=== PATIENT | female | born 1940 | race Caucasian/White ===

== ENCOUNTER 2017-01-24 17:53 | Inpatient (IN) | payer MEDICARE ==
[~2017-01-24] VITALS: Ht 170.2 cm; Wt 54.3 kg
[2017-01-24] VITALS (8 sets, daily range): BP systolic 135–239; BP diastolic 71–125; PULSE 65–82; RESP 12–22; TEMP 98–99.1; O2SAT 92–99
[2017-01-24] MEDS ORDERED: SODIUM CHLOR 0.9% 1000 ML INJ 1,000 ML IV ONE (17:59)
[2017-01-24] MEDS ORDERED: PROM25TA10 PO (18:00)
[2017-01-24] MEDS ORDERED: CLON0.1T PO (18:00)
[2017-01-24] MEDS ORDERED: LORA1TAB12 PO (18:00)
[2017-01-24] MEDS ORDERED: HYDR-3288 PO (18:00)
[2017-01-24] MEDS ORDERED: MS C15TA2 PO (18:00)
[2017-01-24] MEDS ORDERED: GABA300C5 PO (18:00)
[2017-01-24] MEDS ORDERED: LOMO2.5T PO (18:00)
[2017-01-24] MEDS ORDERED: SACC1CAP3 PO (18:00)
[2017-01-24] MEDS ORDERED: ASPI81CH CHEW (18:00)
--- NOTE | 2017-01-24 18:18 | RADRPT ---
EXAM DATE/TIME: 01/24/2017 18:05 [facility] COMPARISON: No previous studies available for comparison. INDICATIONS : Stroke alert; Right facial droop. RADIATION DOSE: 29.82 CTDIvol (mGy) This report was called by Dr. Martinez to Dr. Gasca at 1815 MEDICAL HISTORY : Non-responsive. SURGICAL HISTORY : Non-responsive. ENCOUNTER: Initial ACUITY: 1 day PAIN SCALE: Non-responsive LOCATION: cranial TECHNIQUE: Multiple contiguous axial images were obtained of the head. Using automated exposure control and adj ustment of the mA and/or kV according to patient size, radiation dose was kept as low as reasonably a chievable to obtain optimal diagnostic quality images. DICOM format image data is available electro nically for review and comparison. FINDINGS: CEREBRUM: Focal hypodensity in the left frontal white matter indicating chronic small vessel ischemic change. T he ventricles are normal for age. No evidence of midline shift, mass lesion, hemorrhage or acute inf arction. No extra-axial fluid collections are seen. POSTERIOR FOSSA: The cerebellum and brainstem are intact. The 4th ventricle is midline. The cerebellopontine angle i s unremarkable. EXTRACRANIAL: The visualized portion of the orbits is intact. SKULL: The calvaria is intact. No evidence of skull fracture. CONCLUSION: No acute intracranial findings. Manoj Martinez MD on January 24, 2017 at 18:13 Board Certified Radiologist. This report was verified electronically.
[2017-01-24] MEDS ORDERED: IOHEXOL 350 MG/ML 10 ML VIAL (for RAD DIAG) IVCONTRAST ONE (18:23)
[2017-01-24 18:29] LABS: AUTOMATED NEUTROPHIL # 5.4 TH/MM3 (1.8-7.7); BASOPHIL % 0.3 % (0.0-2.0); EOSINOPHIL # 0.2 TH/MM3 (0-0.4); EOSINOPHIL % 2.6 % (0.0-4.0); HEMATOCRIT 34.9 % (35.0-46.0); HEMO FLAGS DIFF FINAL; I-STAT POTASSIUM 3.7 MMOL/L (3.5-4.9); I-STAT SODIUM 135 MMOL/L (138-146); LYMPH % 11.9 % (9.0-44.0); LYMPHOCYTE # 0.8 TH/MM3 (1.0-4.8); MEAN CELL VOLUME 95.6 FL (80.0-100.0); MEAN CORPUSCULAR HEMOGLOBIN 31.1 PG (27.0-34.0); MEAN CORPUSCULAR HGB CONC 32.5 % (32.0-36.0); NEUT % 75.2 % (16.0-70.0); PLATELET COUNT 198 TH/MM3 (150-450); RED BLOOD COUNT 3.65 MIL/MM3 (4.00-5.30); RED CELL DISTRIBUTION WIDTH 14.7 % (11.6-17.2); WHITE BLOOD COUNT 7.1 TH/MM3 (4.0-11.0)
[2017-01-24] MEDS ORDERED: SODIUM CHLORIDE 0.9% 50 ML BAG IVF ONE (18:30)
[2017-01-24] MEDS ORDERED: ALTEPLASE BOLUS 9 MG/9 ML SYR IV ONE (18:30)
[2017-01-24] MEDS ORDERED: MISCELLANEOUS NURSING INFORMATION XX PRN (18:30)
[2017-01-24] MEDS ORDERED: ALTEPLASE DRIP IV ONE (18:30)
[2017-01-24 18:46] LABS: CREATINE KINASE 82 U/L (26-192)
--- NOTE | 2017-01-24 18:47 | PD ---
HPI Chief Complaint: Stroke Alert Time Seen by Provider: 17:59 Travel History International Travel<30 days: No Contact w/Intl Traveler<30days: No Traveled to known affect area: No History of Present Illness HPI Patient is a woman in her 70s, brought in by EMS as a stroke alert. Per EMS patient was last seen normal about an hour ago. She went to the bathroom and when she came back her son noticed that she had facial droop and she is unable to speak with him. Patient is unable to provide history at this time. [facility] Past Medical History Medical History: Unable to Obtain Tetanus Vaccination: Unknown Past Surgical History Surgical History: Unable to Obtain Social History Alcohol Use: No Tobacco Use: No Substance Use: No Allergies-Medications (Allergen,Severity, Reaction): Coded Allergies: fentanyl (Verified Allergy, Unknown, 01/24/17) penicillin V (Verified Allergy, Unknown, 01/24/17) Reported Meds & Prescriptions Reported Meds & Active Scripts Active Reported Probiotic (Saccharomyces Boulardii) 250 Mg Cap 250 Mg PO BID Aspirin 81 Mg Chew 81 Mg CHEW DAILY Lomotil (Diphenoxylate-Atropine) 2.5-0.025 Mg Tab 1 Tab PO Q6H PRN Phenergan (Promethazine HCl) 25 Mg Tablet 25 Mg PO Q6H PRN Lorazepam 1 Mg Tab 1 Mg PO DAILY PRN Clonidine (Clonidine HCl) 0.1 Mg Tab 0.1 Mg PO TID Gabapentin 300 Mg Cap 300 Mg PO TID [place] (Hydrocodone-Acetaminophen) 7.5-325 mg Tab 1 Tab PO Q4H PRN Ms Contin (Morphine Sulfate) 15 Mg Tab 60 Mg PO BID Review of Systems ROS Limitations: Altered Mental Status Physical Exam Narrative GENERAL: He can alert, but not following directions. In no acute distress. SKIN: Focused skin assessment warm/dry. HEAD: Atraumatic. Normocephalic. EYES: Pupils equal and round and reactive. No scleral icterus. Extraocular movements intact. ENT: Mucous membranes pink and moist. NECK: Trachea midline. No JVD. CARDIOVASCULAR: Regular rate and rhythm. No murmur appreciated. RESPIRATORY: No accessory muscle use. Clear to auscultation. Breath sounds equal bilaterally. GASTROINTESTINAL: Abdomen soft, non-tender, nondistended. MUSCULOSKELETAL: No obvious deformities. No clubbing. No cyanosis. No edema. NEUROLOGICAL: Awake and alert. He used speech. Obvious right-sided facial droop. Moves all of her extremities, but able to follow directions. Data Data Last Documented VS Vital Signs Date Time Temp Pulse Resp B/P (MAP) Pulse Ox O2 Delivery O2 Flow Rate FiO2 01/24/17 19:00 65 14 135/74 (94) 98 Nasal Cannula 2.00 01/24/17 18:38 98.2 Orders Orders Diet Npo (01/24/17 Dinner) Activity Bed Rest (01/24/17 ) Electrocardiogram (01/24/17 ) I-Stat Creatinine (01/24/17 17:59) I-Stat Profile (01/24/17 17:59) Prothrombin Time / Inr (Pt) (01/24/17 17:59) Act Partial Throm Time (Ptt) (01/24/17 17:59) Complete Blood Count With Diff (01/24/17 17:59) Fibrinogen (01/24/17 17:59) Creatine Kinase (Cpk) (01/24/17 17:59) Troponin I (01/24/17 17:59) Ua Includes Microscopic (01/24/17 17:59) Drug Screen, Random Urine (01/24/17 17:59) Type And Screen (01/24/17 17:59) Ct Brain W/O Iv Contrast(Rout) (01/24/17 ) Chest, Single Ap (01/24/17 ) Consult Neurology (01/24/17 ) Blood Glucose (01/24/17 17:59) Ecg Monitoring (01/24/17 17:59) Neuro Checks Q2HX12,Q4H (01/24/17 17:59) Nursing Bedside Swallow Assess .ONCE (01/24/17 17:59) Iv Access Insert/Monitor (01/24/17 17:59) NPO (01/24/17 17:59) Oximetry (01/24/17 17:59) Oxygen Administration (01/24/17 17:59) Sodium Chlor 0.9% 1000 Ml Inj (Ns 1000 M (01/24/17 17:59) Resp Oxygen Marek C Titrat 1-4 L (01/24/17 17:59) Cath For Specimen (01/24/17 17:59) (Hub Use Only)Inp Phy Cons/Ref (9/9/17 ) Cta Brain W Iv Contrast W 3d (01/24/17 ) Cta Neck W Iv Contrast W 3d (01/24/17 18:16) ^ Call Pharmacy (01/24/17 18:19) Nih Stroke Scale - Nihss .ONCE (01/24/17 18:19) Urinary Catheter Insert/Apply (01/24/17 18:19) Anticoagulant Alert (01/24/17 18:19) ^ Post Infusion Restrictions (01/24/17 18:19) ^ Medication Alert (01/24/17 18:19) Vital Signs (Adult) .As directed (01/24/17 18:19) Notify Dr: Blood Pressure (01/24/17 18:19) ^ Medication Alert (01/24/17 18:19) Alteplase Bolus (Activase Bolus) (01/24/17 18:30) Alteplase Drip (Activase Drip) (01/24/17 18:30) Sodium Chloride 0.9% Inj (Ns Inj) (01/24/17 18:30) [facility] Nursing Information (01/24/17 18:30) Resp Oxygen Marek C Titrat 1-4 L (01/24/17 ) Iohexol 350 Inj (Omnipaque 350 Inj) (01/24/17 18:23) Mri Brain W/O Contrast (01/24/17 ) Consult Pt Eval & Tx Oob (01/24/17 19:19) Ot Request For Service (01/24/17 19:19) Speech Therapy Consult-Eval/Tx (01/24/17 19:19) Scd&Teds Bilateral/Knee High BRET.QSHIFT (01/24/17 19:19) W[place]gren Sedimentation Rate (01/24/17 19:19) Vitamin B12 (01/24/17 19:19) Thyroid Stimulating Hormone (01/24/17 19:19) Lipid Profile (01/24/17 19:19) Hemoglobin (Hgb) A1c (01/24/17 19:19) C-Reactive Protein (Crp) (01/24/17 19:19) Eeg Study (01/24/17 ) Echo 2d Comp With Doppler (01/24/17 ) Sodium Chlor 0.9% 1000 Ml Inj (Ns 1000 M (01/24/17 19:30) Labs Laboratory Tests Test 01/24/17 17:55 01/24/17 18:40 White Blood Count 7.1 TH/MM3 Red Blood Count 3.65 MIL/MM3 Hemoglobin 11.4 GM/DL Bedside Hemoglobin 12.2 G/DL Hematocrit 34.9 % Bedside Hematocrit 36.0 % Mean Corpuscular Volume 95.6 FL Mean Corpuscular Hemoglobin 31.1 PG Mean Corpuscular Hemoglobin Concent 32.5 % Red Cell Distribution Width 14.7 % Platelet Count 198 TH/MM3 Mean Platelet Volume 7.7 FL Neutrophils (%) (Auto) 75.2 % Lymphocytes (%) (Auto) 11.9 % Monocytes (%) (Auto) 10.0 % Eosinophils (%) (Auto) 2.6 % Basophils (%) (Auto) 0.3 % Neutrophils # (Auto) 5.4 TH/MM3 Lymphocytes # (Auto) 0.8 TH/MM3 Monocytes # (Auto) 0.7 TH/MM3 Eosinophils # (Auto) 0.2 TH/MM3 Basophils # (Auto) 0.0 TH/MM3 CBC Comment DIFF FINAL Differential Comment Prothrombin Time 10.8 SEC Prothromb Time International Ratio 1.0 RATIO Activated Partial Thromboplast Time 27.2 SEC Fibrinogen 208 mg/dL Bedside Sodium 135 MMOL/L Bedside Potassium 3.7 MMOL/L Bedside Chloride 96 MMOL/L Bedside Blood Urea Nitrogen 7 MG/DL Bedside Creatinine 0.9 MG/DL Bedside Glucose 99 MG/DL Total Creatine Kinase 82 U/L Troponin I LESS THAN 0.02 NG/ML MDM Medical Decision Making Medical Screen Exam Complete: Yes Emergency Medical Condition: Yes Interpretation(s) ECG shows normal sinus rhythm at 68, no ST elevation or depression, normal intervals. Differential Diagnosis Stroke versus sepsis versus intoxication versus electrolyte abnormality Narrative Course patient is a female in her 70s comes in as a stroke alert. She is unable to provide history. She is clearly aphasic and has right-sided facial droop. We' ll, IV established, patient connected to the monitor and taken to CT. There is no evidence of bleed on CT. I spoke with Dr. Galvez urology who suggests giving TPA. TPA was initiated. Patient did start to have some improvement of her symptoms and was speaking more clearly. She still not following any directions. Labs show no acute abnormalities. X-ray shows no acute abnormalities. Patient will be admitted for further management. Diagnosis Primary Impression: Stroke Qualified Codes: I63.9 - Cerebral infarction, unspecified Admitting Information Admitting Physician Requests: it Alethea Gasca MD Jan 24, 2017 18:47
[2017-01-24 18:52] LABS: APTT (PATIENT) 27.2 SEC (24.3-30.1); PROTHROMBIN TIME - PATIENT 10.8 SEC (9.8-11.6)
--- NOTE | 2017-01-24 18:58 | RADRPT ---
EXAM DATE/TIME: 01/24/2017 18:15 [facility] COMPARISON: No previous studies available for comparison. INDICATIONS : Stroke alert, altered mental status. IV CONTRAST: 100 cc Omnipaque 350 (iohexol) IV ; Cumulative dose for multiple exams. RADIATION DOSE: 25.37 CTDIvol (mGy) ; Combined studies MEDICAL HISTORY : Non-responsive. SURGICAL HISTORY : Non-responsive. ENCOUNTER: Initial ACUITY: 1 day PAIN SCALE: Non-responsive LOCATION: Bilateral head TECHNIQUE: Volumetric scanning was performed using a multi-row detector CT scanner. The data was post processed with a variety of visualization algorithms including full volume maximum intensity projection, multi -planar sliding thin slab reformation, curved planar reformation, and surface rendering techniques. Using automated exposure control and adjustment of the mA and/or kV according to patient size, radiat ion dose was kept as low as reasonably achievable to obtain optimal diagnostic quality images. DICO M format image data is available electronically for review and comparison. FINDINGS: There is excellent visualization of the major intracranial arteries out to the second-order branch ve ssels. The left internal carotid artery is completely occluded. The left supraclinoid intracranial carotid r econstitutes via collateral flow from the picayune of Robert. The left cervical circulation demonstrate s decreased caliber of the proximal vessels but is otherwise patent. There were no intraluminal filli ng defects. Vertebrobasilar circulation is intact without evidence of occlusive or stenotic disease. The right ve rtebral artery is dominant. CONCLUSION: 1. Left internal carotid artery occlusion which may be chronic. 2. Reconstituted intracranial left internal carotid artery without evidence of proximal cerebral sten otic or occlusive disease. 3. Patent right cerebral circulation and vertebral basilar circulation. report called to ED physician at 1855. Percy Silva MD on January 24, 2017 at 18:49 Board Certified Radiologist. This report was verified electronically.
--- NOTE | 2017-01-24 19:02 | RADRPT ---
EXAM DATE/TIME: 01/24/2017 18:15 [facility] COMPARISON: No previous studies available for comparison. INDICATIONS : Stroke alert, altered mental status. IV CONTRAST: 100 cc Omnipaque 350 (iohexol) IV ; Cumulative dose for multiple exams. RADIATION DOSE: 25.37 CTDIvol (mGy) ; Combined studies MEDICAL HISTORY : Non-responsive. SURGICAL HISTORY : Non-responsive. ENCOUNTER: Initial ACUITY: 1 day PAIN SCALE: Non-responsive LOCATION: Bilateral neck Elevated flow velocities and ICA/CCA ratios have been found to correlate with increased degrees of vessel stenosis, calculated as percentage of diameter relative to a normal segment of distal ICA/CCA. TECHNIQUE: Volumetric scanning was performed using a multirow detector CT scanner. The data was post processed with a variety of visualization algorithms including full-volume maximum intensity projection, multip lanar sliding thin-slab reformation, curved-planar reformation, and surface-rendering techniques. Us ing automated exposure control and adjustment of the mA and/or kV according to patient size, radiatio n dose was kept as low as reasonably achievable to obtain optimal diagnostic quality images. DICOM f ormat image data is available electronically for review and comparison. FINDINGS: AORTIC ARCH: There is a three-vessel origin of the great vessels from the aorta. Calcified plaque is identified in the proximal great vessels. No evidence of ostial narrowing. RIGHT CAROTID: Mild eccentric plaque is identified in the carotid bifurcation. The common and internal carotid arter ies are otherwise widely patent. LEFT CAROTID: The distal left common carotid artery is heavily calcified. The internal carotid artery is completely occluded. VERTEBRALS: Vertebral arteries are asymmetric in diameter. The right vertebral artery is dominant. There were no proximal stenotic or occlusive changes. CONCLUSION: 1. Heavily calcified left carotid system with suspected chronic occlusion of the left internal caroti d artery. 2. Widely patent right carotid system. 3. Asymmetric vertebral arteries with a dominant right vertebral artery. 4. Postsurgical changes left neck following neck dissection. Percy Silva MD on January 24, 2017 at 18:57 Board Certified Radiologist. This report was verified electronically.
--- NOTE | 2017-01-24 19:13 | RADRPT ---
EXAM DATE/TIME: 01/24/2017 18:24 [facility] COMPARISON: No previous studies available for comparison. INDICATIONS : Stroke Alert. MEDICAL HISTORY : Unresponsive. SURGICAL HISTORY : Unresponsive. ENCOUNTER: Initial ACUITY: 1 day PAIN SCORE: Non-responsive. LOCATION: Bilateral chest FINDINGS: Diffuse bilateral interstitial disease is identified. Interstitial markings are prominent. Heart is m ildly enlarged. There is no evidence of significant consolidation. Post surgical changes are seen in the left side of the neck. CONCLUSION: Diffuse interstitial lung disease which may represent mild congestion versus pneumonitis. No cardiomegaly. Percy Silva MD on January 24, 2017 at 19:10 Board Certified Radiologist. This report was verified electronically.
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
[2017-01-24 19:25] LABS: BLOOD, URINE NEG (NEG); GLUCOSE,URINE NEG (NEG); KETONE, URINE NEG (NEG); NITRITE,URINE NEG (NEG); PH, URINE 6.5 (5.0-8.5); SQUAMOUS EPITHELIAL CELL URINE <1 /hpf (0-5); URINE COLOR LIGHT-YELLOW (YELLW/STRAW)
[2017-01-24] MEDS ORDERED: SODIUM CHLOR 0.9% 1000 ML INJ 1,000 ML IV SCH (19:30)
[2017-01-24] MEDS ORDERED: BISACODYL 10 MG SUPP RECTAL PRN (20:30)
[2017-01-24] MEDS ORDERED: CHLORHEXIDINE GLUCONATE 2 % 1 PACK (2 CLOTHS) TOP PRN (20:30)
[2017-01-24] MEDS ORDERED: MAGNESIUM HYDROXIDE SUSP 30 ML CUP PO PRN (20:30)
[2017-01-24] MEDS ORDERED: MISCELLANEOUS NURSING INFORMATION XX SCH (20:30)
[2017-01-24] MEDS ORDERED: LORazepam 1 MG TAB PO PRN (20:30)
[2017-01-24] MEDS ORDERED: ACETAMINOPHEN 325 MG TAB PO PRN (20:30)
[2017-01-24] MEDS ORDERED: DIPHENOXYLATE/ATROPINE 2.5 MG/0.025 MG TAB PO PRN (20:30)
[2017-01-24] MEDS ORDERED: PROMETHAZINE HCL 25 MG TAB PO PRN (20:30)
[2017-01-24] MEDS ORDERED: SENNOSIDES 8.6 MG TAB PO PRN (20:30)
[2017-01-24] MEDS ORDERED: ONDANSETRON HCL 4 MG/2 ML VIAL IV PUSH PRN (20:30)
[2017-01-24] MEDS ORDERED: LACTULOSE SYRUP 20 GM/30 ML CUP PO PRN (20:30)
[2017-01-24] MEDS ORDERED: RESP: ALBUTEROL 2.5 MG/IPRATROPIUM 0.5 MG NEB (PRN) INH (20:30)
[2017-01-24] MEDS ORDERED: SODIUM CHLORIDE 0.9% FLUSH 10 ML FLUSH PRN (20:30)
[2017-01-24] MEDS ORDERED: NON-FORMULARY DRUG (Saccharomyces Boulardii (Probiotic) 250 MG) PO SCH (21:00)
[2017-01-24] MEDS ORDERED: MORPHINE SULFATE 15 MG CONTROLLED RELEASE TAB PO SCH (21:00)
[2017-01-24] MEDS: DOCUSATE SODIUM 50 MG/SENNA 8.6 MG TAB PO SCH (21:00)
[2017-01-24] MEDS: SODIUM CHLORIDE 0.9% FLUSH 10 ML FLUSH SCH (21:00)
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
[2017-01-24] MEDS: SODIUM CHLOR 0.9% 1000 ML INJ 1,000 ML IV SCH ×2 (21:15→23:09)
[2017-01-24 21:30] LABS: HDL CHOLESTEROL 81.6 MG/DL (40.0-60.0); LDL CHOLESTEROL 64 MG/DL (0-99)
[2017-01-24] MEDS ORDERED: niCARdipine INJ 25 MG in SODIUM CHLOR 0.9% 250 ML INJ 250 ML IV PRN (22:30)
[2017-01-24] MEDS ORDERED: LABETALOL HCL 100 MG/20 ML VIAL IV PUSH PRN (22:30)
[2017-01-24] MEDS: FAMOTIDINE 20 MG/2 ML VIAL IV PUSH SCH (22:53)
[2017-01-24] MEDS: hydrALAZINE HCL 20 MG/ML VIAL IV PUSH PRN (22:53)
[2017-01-24] MEDS ORDERED: MAGNESIUM SULFATE 1 GM PREMIX 100 ML IV ONE (23:45)
[2017-01-24] MEDS: LORazepam 2 MG/ML VIAL IV PUSH PRN (23:50)
[2017-01-24] MEDS: MORPHINE SULFATE 4 MG/ML INJ IV PUSH PRN (23:50)
[2017-01-25] VITALS (12 sets, daily range): BP systolic 107–193; BP diastolic 53–86; PULSE 66–101; RESP 13–25; TEMP 97.8–99.5; O2SAT 92–100
[2017-01-25] MEDS: CHLORHEXIDINE GLUCONATE 2 % 1 PACK (2 CLOTHS) TOP SCH ×2 (00:31→20:46)
[2017-01-25 05:38] LABS: AUTOMATED NEUTROPHIL # 6.2 TH/MM3 (1.8-7.7); BASOPHIL % 0.2 % (0.0-2.0); EOSINOPHIL # 0.3 TH/MM3 (0-0.4); EOSINOPHIL % 3.2 % (0.0-4.0); HEMATOCRIT 38.9 % (35.0-46.0); HEMO FLAGS DIFF FINAL; LYMPH % 13.7 % (9.0-44.0); LYMPHOCYTE # 1.2 TH/MM3 (1.0-4.8); MEAN CELL VOLUME 95.1 FL (80.0-100.0); MEAN CORPUSCULAR HEMOGLOBIN 30.8 PG (27.0-34.0); MEAN CORPUSCULAR HGB CONC 32.4 % (32.0-36.0); MONO % 10.3 % (0.0-8.0); NEUT % 72.6 % (16.0-70.0); PLATELET COUNT 213 TH/MM3 (150-450); RED BLOOD COUNT 4.08 MIL/MM3 (4.00-5.30); RED CELL DISTRIBUTION WIDTH 14.9 % (11.6-17.2); WHITE BLOOD COUNT 8.6 TH/MM3 (4.0-11.0)
[2017-01-25 06:02] LABS: ALKALINE PHOSPHATASE 71 U/L (45-117); TOTAL BILIRUBIN ADULT 0.4 MG/DL (0.2-1.0)
[2017-01-25 06:03] LABS: ALT (GPT) 21 U/L (10-53); ANION GAP 6 MEQ/L (5-15); AST (GOT) 27 U/L (15-37); BICARBONATE 29.4 MEQ/L (21.0-32.0); BLOOD UREA NITROGEN 7 MG/DL (7-18); CHLORIDE 106 MEQ/L (98-107); GLOMERULAR FILTRATION RATE 91 ML/MIN (>89); MAGNESIUM 2.3 MG/DL (1.5-2.5); SODIUM (NA) 141 MEQ/L (136-145)
[2017-01-25 06:08] LABS: POTASSIUM 4.4 MEQ/L (3.5-5.1)
[2017-01-25] MEDS: GABAPENTIN 300 MG CAP PO SCH ×4 (07:44→17:09)
[2017-01-25] MEDS: DOCUSATE SODIUM 50 MG/SENNA 8.6 MG TAB PO SCH ×2 (07:44→20:46)
[2017-01-25] MEDS: cloNIDine HCL 0.1 MG TAB PO SCH ×3 (07:44→17:09)
--- NOTE | 2017-01-25 07:58 | HHI.PR ---
Review/Management Diagnosis/Plan: (1) Acute ischemic left MCA stroke ICD Codes: I63.512 - Cerebral infarction due to unspecified occlusion or stenosis of left middle cerebral artery Status: Acute Plan: s/p iv tpa 2/2 left ica occlusion nihss 1 recs doing well bp <180/100 no blood thinners x 24 hrs mri brain-pending echo-pending lipids-in range, repeat ct brain today at 24 hr chao follow exam (2) Occlusion of left internal carotid artery ICD Codes: I65.22 - Occlusion and stenosis of left carotid artery Status: Chronic Plan: appears to be the cause occlusion could be 2/2 previous neck xrt recs avoid hypotension antiplatelets if repeat ct brain negative (3) Head and neck cancer ICD Codes: C76.0 - Malignant neoplasm of head, face and neck Status: Chronic Plan: hx of resection in the past (4) HTN (hypertension) ICD Codes: I10 - Essential (primary) hypertension Status: Chronic (5) Chronic pain ICD Codes: G89.29 - Other chronic pain Status: Chronic Subjective Subjective Comments No acute events reported No headache No chest pain No dyspnea Active Medications Current Medications Medications (Trade) Dose Ordered Sig/Cassandra Route Start Time Stop Time Status Last Admin Miscellaneous Information No Heparin, Warfarin, Aspir... UNSCH PRN XX 01/24/17 18:30 01/25/17 18:29 (Catapres) 0.1 mg TID PO 01/25/17 09:00 (Lomotil Tab) 1 tab Q6H PRN PO 01/24/17 20:30 (Neurontin) 300 mg TID PO 01/25/17 09:00 (Harman 7.5-325 Mg) 1 tab Q4H PRN PO 01/24/17 20:30 (Ativan) 1 mg DAILY PRN PO 01/24/17 20:30 Future Hold (Oramorph Sr) 60 mg BID PO 01/24/17 21:00 Future Hold (Phenergan) 25 mg Q6H PRN PO 01/24/17 20:30 Sodium Chloride 1,000 ml @ 84 mls/hr [id number] IV 01/24/17 20:23 01/24/17 23:09 (NS Flush) 2 ml UNSCH PRN .XX 01/24/17 20:30 (NS Flush) 2 ml BID .XX 01/24/17 21:00 (Tylenol) 650 mg Q6H PRN PO 01/24/17 20:30 (Pepcid Inj) 20 mg Q12HR IV PUSH 01/24/17 21:00 01/24/17 22:53 (Zofran Inj) 4 mg Q6H PRN IV PUSH 01/24/17 20:30 (Duoneb Neb) 1 ampule Q2HR NEB PRN INH 01/24/17 20:30 Miscellaneous Information 1 Q361D XX 01/24/17 20:30 01/24/17 20:30 (Chlorhexidine 2% Cloth) 3 pack Taper DAILY@04 TOP 01/25/17 04:00 01/21/18 03:59 (Chlorhexidine 2% Cloth) 3 pack UNSCH PRN TOP 01/24/17 20:30 (Debbie-Colace) 1 tab BID PO 01/24/17 21:00 (Milk Of Magnesia Liq) 30 ml Q12H PRN PO 01/24/17 20:30 (Senokot) 17.2 mg Q12H PRN PO 01/24/17 20:30 (Dulcolax Supp) 10 mg DAILY PRN RECTAL 01/24/17 20:30 (Lactulose Liq) 30 ml DAILY PRN PO 01/24/17 20:30 Nicardipine HCl 25 mg/Sodium Chloride 260 ml @ 52 mls/hr TITRATE PRN IV 01/24/17 22:30 (Apresoline Inj) 20 mg Q4H PRN IV PUSH 01/24/17 22:30 01/24/17 22:53 (Trandate Inj) 10 mg Q4H PRN IV PUSH 01/24/17 22:30 (Ativan Inj) 1 mg Q4H PRN IV PUSH 01/24/17 23:45 01/24/17 23:50 (Morphine Inj) 2 mg Q3H PRN IV PUSH 01/24/17 23:45 01/24/17 23:50 Allergies Allergies Coded Allergies fentanyl (Verified Allergy, Unknown, 01/24/17) penicillin V (Verified Allergy, Unknown, 01/24/17) Review of Systems All other ROS: ROS reviewed as documented in chart Exam I&O / VS Vital Signs Date Time Temp Pulse Resp B/P (MAP) Pulse Ox O2 Delivery O2 Flow Rate FiO2 01/25/17 06:00 72 01/25/17 04:00 99.2 79 25 152/74 (100) 100 01/25/17 04:00 72 01/25/17 02:00 78 01/25/17 00:00 85 01/25/17 00:00 99.0 85 14 107/53 (71) 92 01/24/17 22:00 82 01/24/17 22:00 99.1 82 18 239/125 (163) 94 01/24/17 21:45 99.0 72 18 239/125 (163) 92 01/24/17 21:40 01/24/17 19:00 65 14 135/74 (94) 98 Nasal Cannula 2.00 01/24/17 18:45 65 22 148/71 (96) 97 Nasal Cannula 4.00 01/24/17 18:38 98.2 67 14 153/77 (102) 99 Nasal Cannula 4.00 01/24/17 18:18 85 12 94 Nasal Cannula 4.00 01/24/17 18:05 16 94 Room Air 01/24/17 18:05 97 Nasal Cannula 2.00 01/24/17 17:58 97 2.00 01/24/17 17:55 98.0 78 12 97 General: Alert and Oriented, No acute distress Eye: EOMI Respiratory: Non-labored respirations Neurologic: Alert, Oriented Psychiatric: Cooperative Exam Comments ox 3, follows, mild dysarthria, rt lower facial weakness, left neck/ sternocleidomastoid atrophy 2/2 previous surgery/xrt, eomi, ou 3-2mm, vff, no drift, no dystaxia, able to raise all 4 ext to gravity for >5 secs, msr sym, no clonus, planter flexor Objective Micro and Labs Laboratory Tests Test 01/24/17 17:55 01/24/17 18:40 01/24/17 22:00 01/25/17 04:02 White Blood Count 7.1 8.6 Red Blood Count 3.65 4.08 Hemoglobin 11.4 12.6 Bedside Hemoglobin 12.2 Hematocrit 34.9 38.9 Bedside Hematocrit 36.0 Mean Corpuscular Volume 95.6 95.1 Mean Corpuscular Hemoglobin 31.1 30.8 Mean Corpuscular Hemoglobin Concent 32.5 32.4 Red Cell Distribution Width 14.7 14.9 Platelet Count 198 213 Mean Platelet Volume 7.7 7.9 Neutrophils (%) (Auto) 75.2 72.6 Lymphocytes (%) (Auto) 11.9 13.7 Monocytes (%) (Auto) 10.0 10.3 Eosinophils (%) (Auto) 2.6 3.2 Basophils (%) (Auto) 0.3 0.2 Neutrophils # (Auto) 5.4 6.2 Lymphocytes # (Auto) 0.8 1.2 Monocytes # (Auto) 0.7 0.9 Eosinophils # (Auto) 0.2 0.3 Basophils # (Auto) 0.0 0.0 CBC Comment DIFF FINAL DIFF FINAL Differential Comment Erythrocyte Sedimentation Rate 15 Prothrombin Time 10.8 11.0 Prothromb Time International Ratio 1.0 1.0 Activated Partial Thromboplast Time 27.2 Fibrinogen 208 Bedside Sodium 135 Bedside Potassium 3.7 Bedside Chloride 96 Bedside Blood Urea Nitrogen 7 Bedside Creatinine 0.9 Bedside Glucose 99 Total Creatine Kinase 82 Troponin I LESS THAN 0.02 C-Reactive Protein LESS THAN 0.29 Triglycerides Level 93 Cholesterol Level 164 LDL Cholesterol 64 HDL Cholesterol 81.6 Cholesterol/HDL Ratio 2.00 Vitamin B12 Level GREATER THAN 2000 Thyroid Stimulating Hormone 3rd Gen 1.360 Urine Color LIGHT-YELLOW Urine Turbidity CLEAR Urine pH 6.5 Urine Specific [place] 1.010 Urine Protein NEG Urine Glucose (UA) NEG Urine Ketones NEG Urine Occult Blood NEG Urine Nitrite NEG Urine Bilirubin NEG Urine Urobilinogen LESS THAN 2.0 Urine Leukocyte Esterase NEG Urine RBC 1 Urine WBC LESS THAN 1 Urine Squamous Epithelial Cells <1 Urine Opiates Screen POS Urine Barbiturates Screen NEG Urine Amphetamines Screen NEG Urine Benzodiazepines Screen NEG Urine Cocaine Screen NEG Urine Cannabinoids Screen NEG Nasal Screen MRSA (PCR) MRSA NOT DETECTED Blood Urea Nitrogen 7 Creatinine 0.57 Random Glucose 81 Total Protein 6.4 Albumin 3.3 Calcium Level 8.7 Phosphorus Level 3.4 Magnesium Level 2.3 Alkaline Phosphatase 71 Aspartate Amino Transf (AST/SGOT) 27 Alanine Aminotransferase (ALT/SGPT) 21 Total Bilirubin 0.4 Sodium Level 141 Potassium Level 4.4 Chloride Level 106 Carbon Dioxide Level 29.4 Anion Gap 6 Estimat Glomerular Filtration Rate 91 Problem Qualifiers (1) HTN (hypertension): Qualified Codes: I10 - Essential (primary) hypertension (2) Chronic pain: Qualified Codes: G89.4 - Chronic pain syndrome Rob Galvez MD Jan 25, 2017 07:58
[2017-01-25] MEDS: FAMOTIDINE 20 MG/2 ML VIAL IV PUSH SCH ×2 (08:00→20:46)
[2017-01-25] MEDS: SODIUM CHLORIDE 0.9% FLUSH 10 ML FLUSH SCH ×2 (08:01→20:46)
[2017-01-25] MEDS: hydrALAZINE HCL 20 MG/ML VIAL IV PUSH PRN (08:03)
[2017-01-25] MEDS: MORPHINE SULFATE 4 MG/ML INJ IV PUSH PRN ×3 (08:48→20:47)
--- NOTE | 2017-01-25 09:22 | EKG ---
Date Performed: 01/24/2017 Time Performed: 18:33:53 PTAGE: 89 years EKG: Sinus rhythm POSSIBLE LEFT ATRIAL ENLARGEMENT POSSIBLE LEFT VENTRICULAR HYPERTROPHY POSSIBLE SEPTAL MYOCARDIAL IN FARCTION ABNORMAL ECG NO PREVIOUS TRACING DOCTOR: Anatoliy Low Interpretating Date/Time 01/25/2017 09:21:29
[2017-01-25] MEDS: ACETAMINOPHEN/HYDROcodone 325 MG/7.5 MG TAB PO PRN ×2 (10:00→17:10)
--- NOTE | 2017-01-25 10:53 | HHI.PR ---
Subjective Remarks Follow up CVA. The patient reports cramping in her leg and states that her neck is uncomfortable. She has just completed an EEG. Denies chest pain, dyspnea. Denies numbness/tingling/weakness of her extremities. Objective Vitals Vital Signs Date Time Temp Pulse Resp B/P (MAP) Pulse Ox O2 Delivery O2 Flow Rate FiO2 01/25/17 10:00 101 01/25/17 08:53 24 01/25/17 08:00 98.5 79 18 193/86 (121) 98 01/25/17 08:00 79 01/25/17 06:00 72 01/25/17 04:00 99.2 79 25 152/74 (100) 100 01/25/17 04:00 72 01/25/17 02:00 78 01/25/17 00:00 85 01/25/17 00:00 99.0 85 14 107/53 (71) 92 01/24/17 22:00 82 01/24/17 22:00 99.1 82 18 239/125 (163) 94 01/24/17 21:45 99.0 72 18 239/125 (163) 92 01/24/17 21:40 01/24/17 19:00 65 14 135/74 (94) 98 Nasal Cannula 2.00 01/24/17 18:45 65 22 148/71 (96) 97 Nasal Cannula 4.00 01/24/17 18:38 98.2 67 14 153/77 (102) 99 Nasal Cannula 4.00 01/24/17 18:18 85 12 94 Nasal Cannula 4.00 01/24/17 18:05 16 94 Room Air 01/24/17 18:05 97 Nasal Cannula 2.00 01/24/17 17:58 97 2.00 01/24/17 17:55 98.0 78 12 97 I/O 01/24/17 01/24/17 01/24/17 01/25/17 01/25/17 01/25/17 07:00 15:00 23:00 07:00 15:00 23:00 Intake Total 0 ml Output Total 450 ml Balance 0 ml -450 ml Intake IV Total 0 ml Output Urine Total 450 ml Stool Total 0 ml Result Diagram: 01/25/172 01/25/172 Imaging Last Impressions Neck CTA 9/9/17 1816 Signed Impressions: Service Date/Time: Tuesday, January 24, 2017 18:15 - CONCLUSION: 1. Heavily calcified left carotid system with suspected chronic occlusion of the left internal carotid artery. 2. Widely patent right carotid system. 3. Asymmetric vertebral arteries with a dominant right vertebral artery. 4. Postsurgical changes left neck following neck dissection. Percy Silva MD Head CTA 01/24/17 0000 Signed Impressions: Service Date/Time: Tuesday, January 24, 2017 18:15 - CONCLUSION: 1. Left internal carotid artery occlusion which may be chronic. 2. Reconstituted intracranial left internal carotid artery without evidence of proximal cerebral stenotic or occlusive disease. 3. Patent right cerebral circulation and vertebral basilar circulation. report called to ED physician at 1855. Percy Silva MD Head CT 01/24/17 0000 Signed Impressions: Service Date/Time: Tuesday, January 24, 2017 18:05 - CONCLUSION: No acute intracranial findings. Manoj Martinez MD Chest X-Ray 01/24/17 0000 Signed Impressions: Service Date/Time: Tuesday, January 24, 2017 18:24 - CONCLUSION: Diffuse interstitial lung disease which may represent mild congestion versus pneumonitis. No cardiomegaly. Percy Silva MD Objective Remarks General: Elderly female in no acute distress. Heart: Regular rate and rhythm. No murmur. Lungs: Clear to auscultation bilaterally. No wheezes, rales, or rhonchi. Breathing is nonlabored. Abdomen: Soft, nontender, nondistended. Extremities: No lower extremity edema. Psych: Alert and oriented 3. Procedures None Urinary Catheter: No Vascular Central Line Catheter: No A/P Problem List: (1) Acute ischemic left MCA stroke ICD Code: I63.512 - Cerebral infarction due to unspecified occlusion or stenosis of left middle cerebral artery Status: Acute (2) HTN (hypertension) ICD Code: I10 - Essential (primary) hypertension Status: Chronic Assessment and Plan 1. CVA: Status post TPA administration. Appreciate neurology recommendations. Patient has had significant improvement in her symptoms. Repeat head CT ordered for 24 hours post TPA administration. Check MRI/MRA per neurology. PT/ST/OT. 2. Hypertension: Keep SBP less than 180. 3. Left internal carotid artery occlusion: Likely chronic. 4. Dyslipidemia: Continue statin. 5. Anxiety: Ativan as needed. 6. Chronic back pain: Continue pain control. 7. GI prophylaxis: Pepcid. 8. DVT prophylaxis: Soumya, MICHAEL luna. Avoid chemical prophylaxis secondary to TPA administration. Problem Qualifiers (1) HTN (hypertension): Qualified Codes: I10 - Essential (primary) hypertension Kirt Rosas MD Jan 25, 2017 10:53
[2017-01-25] MEDS: SODIUM CHLOR 0.9% 1000 ML INJ 1,000 ML IV SCH ×2 (12:07→23:00)
[2017-01-25 12:46] LABS: HEMOGLOBIN A1a 1.2 %; HEMOGLOBIN A1b 1.4 %; HEMOGLOBIN Ao 85.9 %; HEMOGLOBIN F 0.2 %; HEMOGLOBIN LA1C 1.8 %; HEMOGLOBIN P3 3.3 %
--- NOTE | 2017-01-25 13:30 | MG ---
cc: NATE LUCAS MD Sex: F DATE OF STUDY: 01/26/2016 [id number] HISTORY: A 73-year-old female with episode of confusion, right-sided weakness, memory changes. DESCRIPTION: 8-10 Hz posterior rhythm, 10-40 microvolts increased beta frequencies noted in all the channels, movement artifact. Good EEG variability reactivity. Attenuation slowing of background with transition into drowsy state followed by stage I. Stage II sleep with appearance of spindle type activity. Single lead EKG showing sinus tachycardia. INTERPRETATION Normal awake sleep EEG with slight increase in fast frequencies. Clinical correlation. Nate Lucas MD MG/MONICA /12:54 PM /1:24 PM
--- NOTE | 2017-01-25 14:47 | RADRPT ---
EXAM DATE/TIME: 01/25/2017 13:15 [facility] COMPARISON: No previous studies available for comparison. INDICATIONS : Slurred speech. MEDICAL HISTORY : Hypertension. CVA, carcinoma neck SURGICAL HISTORY : Cholecystectomy. Left neck dissection ENCOUNTER: Initial ACUITY: 1 day PAIN SCORE: 0/10 LOCATION: cranial TECHNIQUE: Multiplanar, multisequence MRI of the brain was performed without contrast. FINDINGS: CEREBRUM: The ventricles are normal for age. No evidence of midline shift, mass lesion, hemorrhage or acute in farction. No extraaxial fluid collections are seen. The pituitary gland and suprasellar cistern are normal in configuration. WHITE MATTER: Old infarct with surrounding gliosis is identified in the left frontal lobe. There is no evidence of mass effect or restricted diffusion. Mild periventricular T2 hyperintensity is noted. POSTERIOR FOSSA: The cerebellum and brainstem are intact. The 4th ventricle is midline. The cerebellopontine angle is unremarkable. The cerebellar tonsils are normal in position. DIFFUSION IMAGING: No focal areas of restricted diffusion are seen. No evidence of acute infarction. EXTRACRANIAL: The visualized portions of the orbits and paranasal sinuses are unremarkable. CONCLUSION: 1. Old left frontal deep white matter infarct 2. No evidence of acute infarct, hemorrhage, mass or edema. 3. Mild chronic ischemic white matter changes. Percy Silva MD on January 25, 2017 at 14:42 Board Certified Radiologist. This report was verified electronically.
--- NOTE | 2017-01-25 14:49 | RADRPT ---
EXAM DATE/TIME: 01/25/2017 13:15 [facility] COMPARISON: No previous studies available for comparison. INDICATIONS : Slurred speech. MEDICAL HISTORY : Hypertension. Crohn's disease. CVA, carcinoma neck SURGICAL HISTORY : Cholecystectomy. Neck surgery for CA. ENCOUNTER: Initial ACUITY: 1 day PAIN SCORE: 0/10 LOCATION: cranial Please note a normal MRA of the brain does not entirely exclude the possibility of a small aneurysm, nor the possibility of distal intracranial vessel disease. TECHNIQUE: 3D time of flight MRA was performed. Source images, multiplanar STS MIP, and 3D volume MIP reconstru ctions were reviewed. FINDINGS: There is excellent visualization of the major intracranial arteries out to the second-order branch ve ssels. Absent flow is identified in the right internal carotid artery. The left middle cerebral artery recei ves collateral flow via the posterior and anterior communicating arteries. There is a significant asy mmetry in flow with diminished flow throughout the left middle cerebra artery. Satisfactory flow is maintained within the anterior cerebral, right middle cerebral and vertebral bas ilar vessels. There is no evidence of focal aneurysm. CONCLUSION: 1. Occluded left internal carotid artery. 2. Reconstituted but decreased flow to the left MCA via anterior and posterior communicating collater als. 3. No other significant focal vascular abnormality Percy Silva MD on January 25, 2017 at 14:45 Board Certified Radiologist. This report was verified electronically.
--- NOTE | 2017-01-25 18:58 | ECHRPT ---
Indication: CVA/TIA CONCLUSIONS The left ventricular systolic function is normal with an estimated ejection fraction in the range of 60-65%. Normal left ventricular size. Wall thickness is normal. No regional wall motion abnormalities are present. Mild mitral annular calcification. [id number] mitral valve regurgitation. Calcification of both mitral valve leaflets. Aortic valve sclerosis is present. There is mild tricuspid valve regurgitation. There is estimated mild pulmonary hypertension present (range 40-50 mmHg). BP: 152 / 74 HR: 100 Rhythm: Sinus MEASUREMENTS (Male / Female) Normal Values Technical Quality:Fair 2D ECHO LV Diastolic Diameter PLAX 3.0 cm 4.2 - 5.9 / 3.9 - 5.3 cm LV Systolic Diameter PLAX 2.0 cm IVS Diastolic Thickness 1.0 cm 0.6 - 1.0 / 0.6 - 0.9 cm LVPW Diastolic Thickness 1.0 cm 0.6 - 1.0 / 0.6 - 0.9 cm LV Relative Wall Thickness 0.7 LVOT Diameter 1.9 cm LV Ejection Fraction MOD 4C 65.2 % LV Cardiac Index MOD 4C 2859.4 cm/minm LV Ejection Fraction 4C AL 66.0 % LV Cardiac Index 4C AL 2992.9 cm/minm M-MODE Aortic Root Diameter MM 3.1 cm AV Cusp Separation MM 1.9 cm DOPPLER AV Peak Velocity 212.3 cm/s AV Peak Gradient 18.0 mmHg AV Mean Gradient 12.0 mmHg AV Velocity Time Integral 43.0 cm LVOT Peak Velocity 189.0 cm/s LVOT Peak Gradient 14.3 mmHg LVOT Velocity Time Integral 35.1 cm LVOT Cardiac Index 6323.8 cm/minm AV Area Cont Eq vti 2.3 cm AV Area Cont Eq pk 2.5 cm LV E' Lateral Velocity 7.8 cm/s LV E' Septal Velocity 4.8 cm/s TR Peak Velocity 311.0 cm/s TR Peak Gradient 38.7 mmHg FINDINGS LEFT VENTRICLE The left ventricular systolic function is normal with an estimated ejection fraction in the range of 60-65%. Normal left ventricular size. Wall thickness is normal. No regional wall motion abnormalities are present. RIGHT VENTRICLE Normal right ventricular size and systolic function. LEFT ATRIUM The left atrial size is normal. RIGHT ATRIUM The right atrial size is normal. ATRIAL SEPTUM Normal atrial septal thickness without atrial level shunting by limited color doppler interrogation. AORTA The aortic root and proximal ascending aorta are normal in size on limited imaging. MITRAL VALVE Mild mitral annular calcification. [id number] mitral valve regurgitation. Calcification of both mitral valve leaflets. AORTIC VALVE Aortic valve sclerosis is present. TRICUSPID VALVE There is mild tricuspid valve regurgitation. There is estimated mild pulmonary hypertension present (range 40-50 mmHg). PULMONARY VALVE The pulmonary valve is not well visualized. VESSELS The inferior vena cava is normal in size. PERICARDIUM No pericardial effusion. Anatoliy Low MD (Electronically Signed) Final Date:25 January 2017 18:57
--- NOTE | 2017-01-25 19:02 | RADRPT ---
EXAM DATE/TIME: 01/25/2017 18:45 [facility] COMPARISON: CT BRAIN W/O CONTRAST, January 24, 2017, 18:05. INDICATIONS : Post TPA. Previous stroke alert. RADIATION DOSE: 32.12 CTDIvol (mGy) MEDICAL HISTORY : Hypertension. Cerebrovascular disease. Neck cancer. SURGICAL HISTORY : Cholecystectomy. Neck surgery for cancer. ENCOUNTER: Initial ACUITY: 1 day PAIN SCALE: 0/10 LOCATION: cranial TECHNIQUE: Multiple contiguous axial images were obtained of the head. Using automated exposure control and adj ustment of the mA and/or kV according to patient size, radiation dose was kept as low as reasonably a chievable to obtain optimal diagnostic quality images. DICOM format image data is available electro nically for review and comparison. FINDINGS: CEREBRUM: The ventricles are normal for age. Old watershed infarct in the left frontal parietal region. No richy dence of midline shift, mass lesion, hemorrhage or acute infarction. No extra-axial fluid collection s are seen. POSTERIOR FOSSA: The cerebellum and brainstem are intact. The 4th ventricle is midline. The cerebellopontine angle i s unremarkable. EXTRACRANIAL: The visualized portion of the orbits is intact. SKULL: The calvaria is intact. No evidence of skull fracture. CONCLUSION: Old left frontal parietal watershed infarct. Nothing acute. Eran Marsh MD on January 25, 2017 at 18:52 Board Certified Radiologist. This report was verified electronically.
[2017-01-25] MEDS: LORazepam 2 MG/ML VIAL IV PUSH PRN (20:47)
[2017-01-26] VITALS (13 sets, daily range): BP systolic 98–180; BP diastolic 58–79; PULSE 59–92; RESP 17–23; TEMP 97.7–98.6; O2SAT 94–100
[2017-01-26] MEDS: MORPHINE SULFATE 4 MG/ML INJ IV PUSH PRN ×5 (03:31→20:31)
[2017-01-26] MEDS: hydrALAZINE HCL 20 MG/ML VIAL IV PUSH PRN (05:18)
[2017-01-26] MEDS: GABAPENTIN 300 MG CAP PO SCH ×3 (07:59→17:13)
[2017-01-26] MEDS: DOCUSATE SODIUM 50 MG/SENNA 8.6 MG TAB PO SCH ×2 (07:59→20:54)
[2017-01-26] MEDS: ACETAMINOPHEN/HYDROcodone 325 MG/7.5 MG TAB PO PRN ×3 (07:59→17:14)
[2017-01-26] MEDS: cloNIDine HCL 0.1 MG TAB PO SCH ×3 (07:59→17:13)
[2017-01-26] MEDS: FAMOTIDINE 20 MG/2 ML VIAL IV PUSH SCH ×2 (08:00→20:31)
[2017-01-26] MEDS: SODIUM CHLORIDE 0.9% FLUSH 10 ML FLUSH SCH ×2 (08:00→20:30)
--- NOTE | 2017-01-26 09:13 | HHI.PR ---
Subjective Remarks Follow up CVA. Patient states that she feels a little confused about what happened. Denies chest pain, dyspnea, vision changes, numbness/tingling/ weakness of her extremities. Does have a headache. Objective Vitals Vital Signs Date Time Temp Pulse Resp B/P (MAP) Pulse Ox O2 Delivery O2 Flow Rate FiO2 01/26/17 06:00 92 01/26/17 04:00 63 01/26/17 04:00 98.1 63 20 180/79 (112) 94 01/26/17 02:00 59 01/26/17 00:00 68 01/26/17 00:00 97.9 66 17 132/74 (93) 95 01/25/17 22:00 66 01/25/17 20:00 97.8 71 21 109/59 (76) 97 01/25/17 20:00 71 01/25/17 18:00 67 01/25/17 16:00 79 01/25/17 16:00 99.0 79 19 152/77 (102) 98 01/25/17 14:00 86 01/25/17 12:00 99.5 94 13 165/76 (105) 99 01/25/17 12:00 94 01/25/17 10:00 101 I/O 01/25/17 01/25/17 01/25/17 01/26/17 01/26/17 01/26/17 07:00 15:00 23:00 07:00 15:00 23:00 Intake Total 1100 ml 2185 ml 120 ml Output Total 450 ml 600 ml Balance -450 ml 1100 ml 2185 ml -480 ml Intake Oral 660 ml 120 ml IV Total 1100 ml 1525 ml Output Urine Total 450 ml 600 ml Stool Total 0 ml 0 ml # Voids 3 Result Diagram: 01/25/17 0402 01/25/17 0402 Imaging Last Impressions Head CT 01/25/17 1800 Signed Impressions: Service Date/Time: Wednesday, January 25, 2017 18:45 - CONCLUSION: Old left frontal parietal watershed infarct. Nothing acute. Eran Marsh MD Head Magnetic Resonance Angiography 01/25/17 0000 Signed Impressions: Service Date/Time: Wednesday, January 25, 2017 13:15 - CONCLUSION: 1. Occluded left internal carotid artery. 2. Reconstituted but decreased flow to the left MCA via anterior and posterior communicating collaterals. 3. No other significant focal vascular abnormality Percy Silva MD Neck CTA 01/24/17 1816 Signed Impressions: Service Date/Time: Tuesday, January 24, 2017 18:15 - CONCLUSION: 1. Heavily calcified left carotid system with suspected chronic occlusion of the left internal carotid artery. 2. Widely patent right carotid system. 3. Asymmetric vertebral arteries with a dominant right vertebral artery. 4. Postsurgical changes left neck following neck dissection. Percy Silva MD Head CTA 01/24/17 0000 Signed Impressions: Service Date/Time: Tuesday, January 24, 2017 18:15 - CONCLUSION: 1. Left internal carotid artery occlusion which may be chronic. 2. Reconstituted intracranial left internal carotid artery without evidence of proximal cerebral stenotic or occlusive disease. 3. Patent right cerebral circulation and vertebral basilar circulation. report called to ED physician at 1855. Percy Silva MD Chest X-Ray 01/24/17 0000 Signed Impressions: Service Date/Time: Tuesday, January 24, 2017 18:24 - CONCLUSION: Diffuse interstitial lung disease which may represent mild congestion versus pneumonitis. No cardiomegaly. Percy Silva MD Brain MRI 01/24/17 0000 Signed Impressions: Service Date/Time: Wednesday, January 25, 2017 13:15 - CONCLUSION: 1. Old left frontal deep white matter infarct 2. No evidence of acute infarct, hemorrhage, mass or edema. 3. Mild chronic ischemic white matter changes. Percy Silva MD Objective Remarks General: Elderly female in no acute distress. Heart: Regular rate and rhythm. No murmur. Lungs: Clear to auscultation bilaterally. No wheezes, rales, or rhonchi. Breathing is nonlabored. Abdomen: Soft, nontender, nondistended. Extremities: No lower extremity edema. Psych: Alert and oriented 3. Procedures None Urinary Catheter: No Vascular Central Line Catheter: No A/P Problem List: (1) Acute ischemic left MCA stroke ICD Code: I63.512 - Cerebral infarction due to unspecified occlusion or stenosis of left middle cerebral artery Status: Acute (2) HTN (hypertension) ICD Code: I10 - Essential (primary) hypertension Status: Chronic (3) Occlusion of left internal carotid artery ICD Code: I65.22 - Occlusion and stenosis of left carotid artery Status: Chronic Assessment and Plan 1. CVA: Status post TPA administration. Appreciate neurology recommendations. Patient has had significant improvement in her symptoms. Repeat head CT shows no acute change. MRI/MRA reports noted. PT/ST/OT. 2. Hypertension: Keep SBP less than 180. 3. Left internal carotid artery occlusion: ?vascular surgery consult. 4. Dyslipidemia: Continue statin. 5. Anxiety: Ativan as needed. 6. Chronic back pain: Continue pain control. 7. GI prophylaxis: Pepcid. 8. DVT prophylaxis: MICHAEL Dooley. Avoid chemical prophylaxis secondary to TPA administration until cleared by neurology.. Discharge Planning Will likely need SNF/rehabilitation versus home health. Problem Qualifiers (1) HTN (hypertension): Qualified Codes: I10 - Essential (primary) hypertension Kirt Rosas MD Jan 26, 2017 09:13
[2017-01-26] MEDS: SODIUM CHLOR 0.9% 1000 ML INJ 1,000 ML IV SCH (13:01)
--- NOTE | 2017-01-26 15:22 | HHI.PR ---
Review/Management Diagnosis/Plan: (1) Acute ischemic left MCA stroke ICD Codes: I63.512 - Cerebral infarction due to unspecified occlusion or stenosis of left middle cerebral artery Status: Acute Plan: s/p iv tpa 2/2 left ica occlusion mri brain no acute infarct- resolved s/p tpa echo good ef old left mca infarct recs start plavix/aspirin nihss 0 ok to d/c home and f/u outpatient avoid hypotension reviewed results with pt she wants to go home and f/u with her pcp in the [facility] (2) Occlusion of left internal carotid artery ICD Codes: I65.22 - Occlusion and stenosis of left carotid artery Status: Chronic Plan: appears to be the cause occlusion could be 2/2 previous neck xrt recs avoid hypotension antiplatelets if repeat ct brain negative (3) Head and neck cancer ICD Codes: C76.0 - Malignant neoplasm of head, face and neck Status: Chronic Plan: hx of resection in the past (4) HTN (hypertension) ICD Codes: I10 - Essential (primary) hypertension Status: Chronic (5) Chronic pain ICD Codes: G89.29 - Other chronic pain Status: Chronic Subjective Subjective Comments No acute events reported feels well, wants to go home No headache No chest pain No dyspnea Active Medications Current Medications Medications (Trade) Dose Ordered Sig/Cassandra Route Start Time Stop Time Status Last Admin (Catapres) 0.1 mg TID PO 01/25/17 09:00 01/26/17 13:00 (Lomotil Tab) 1 tab Q6H PRN PO 01/24/17 20:30 (Neurontin) 300 mg TID PO 01/25/17 09:00 01/26/17 13:01 ([place] 7.5-325 Mg) 1 tab Q4H PRN PO 01/24/17 20:30 01/26/17 13:01 (Ativan) 1 mg DAILY PRN PO 01/24/17 20:30 Future Hold (Oramorph Sr) 60 mg BID PO 01/24/17 21:00 Future Hold (Phenergan) 25 mg Q6H PRN PO 01/24/17 20:30 Sodium Chloride 1,000 ml @ 84 mls/hr [id number] IV 01/24/17 20:23 01/26/17 13:01 (NS Flush) 2 ml UNSCH PRN .XX 01/24/17 20:30 (NS Flush) 2 ml BID .XX 01/24/17 21:00 01/26/17 08:00 (Tylenol) 650 mg Q6H PRN PO 01/24/17 20:30 (Pepcid Inj) 20 mg Q12HR IV PUSH 01/24/17 21:00 01/26/17 08:00 (Zofran Inj) 4 mg Q6H PRN IV PUSH 01/24/17 20:30 (Duoneb Neb) 1 ampule Q2HR NEB PRN INH 01/24/17 20:30 Miscellaneous Information 1 [id number] XX 01/24/17 20:30 01/24/17 20:30 (Chlorhexidine 2% Cloth) 3 pack Taper DAILY@04 TOP 01/25/17 04:00 01/21/18 03:59 (Chlorhexidine 2% Cloth) 3 pack UNSCH PRN TOP 01/24/17 20:30 (Debbie-Colace) 1 tab BID PO 01/24/17 21:00 01/26/17 07:59 (Milk Of Magnesia Liq) 30 ml Q12H PRN PO 01/24/17 20:30 (Senokot) 17.2 mg Q12H PRN PO 01/24/17 20:30 (Dulcolax Supp) 10 mg DAILY PRN RECTAL 01/24/17 20:30 (Lactulose Liq) 30 ml DAILY PRN PO 01/24/17 20:30 Nicardipine HCl 25 mg/Sodium Chloride 260 ml @ 52 mls/hr TITRATE PRN IV 01/24/17 22:30 (Apresoline Inj) 20 mg Q4H PRN IV PUSH 01/24/17 22:30 01/26/17 05:18 (Trandate Inj) 10 mg Q4H PRN IV PUSH 01/24/17 22:30 (Ativan Inj) 1 mg Q4H PRN IV PUSH 01/24/17 23:45 01/25/17 20:47 (Morphine Inj) 2 mg Q3H PRN IV PUSH 01/24/17 23:45 01/26/17 10:39 Allergies Allergies Coded Allergies fentanyl (Verified Allergy, Unknown, 01/24/17) penicillin V (Verified Allergy, Unknown, 01/24/17) Review of Systems All other ROS: ROS reviewed as documented in chart Exam I&O / VS 01/26/17 01/26/17 01/27/17 15:00 23:00 07:00 Intake Total 1000 ml Balance 1000 ml IV Total 1000 ml Vital Signs Date Time Temp Pulse Resp B/P (MAP) Pulse Ox O2 Delivery O2 Flow Rate FiO2 01/26/17 14:00 71 01/26/17 12:00 69 01/26/17 12:00 98.1 69 23 116/58 (77) 94 01/26/17 10:52 24 01/26/17 10:00 84 01/26/17 08:00 98.2 91 18 159/77 (104) 100 01/26/17 08:00 91 01/26/17 06:00 92 01/26/17 04:00 63 01/26/17 04:00 98.1 63 20 180/79 (112) 94 01/26/17 02:00 59 01/26/17 00:00 68 01/26/17 00:00 97.9 66 17 132/74 (93) 95 01/25/17 22:00 66 01/25/17 20:00 97.8 71 21 109/59 (76) 97 01/25/17 20:00 71 01/25/17 18:00 67 01/25/17 16:00 79 01/25/17 16:00 99.0 79 19 152/77 (102) 98 General: Alert and Oriented, No acute distress Eye: EOMI Respiratory: Non-labored respirations Neurologic: Alert, Oriented Psychiatric: Cooperative Exam Comments ox 3, follows, no aphasia, left neck/sternocleidomastoid atrophy 2/2 previous surgery/xrt, eomi, ou 3-2mm, vff, no drift, no dystaxia, able to raise all 4 ext to gravity for >5 secs, msr sym, no clonus, planter flexor Problem Qualifiers (1) HTN (hypertension): Qualified Codes: I10 - Essential (primary) hypertension (2) Chronic pain: Qualified Codes: G89.4 - Chronic pain syndrome Rob Galvez MD Jan 26, 2017 15:22
[2017-01-26] MEDS: CLOPIDOGREL 75 MG TAB PO SCH (17:13)
[2017-01-26] MEDS: ASPIRIN EC 81 MG TABEC PO SCH (17:13)
[2017-01-26] MEDS: CHLORHEXIDINE GLUCONATE 2 % 1 PACK (2 CLOTHS) TOP SCH (20:27)
[2017-01-26] MEDS: LORazepam 2 MG/ML VIAL IV PUSH PRN (20:31)
[2017-01-27] VITALS (9 sets, daily range): BP systolic 140–213; BP diastolic 77–97; PULSE 63–94; RESP 21–27; TEMP 97.7–98.6; O2SAT 93–99
[2017-01-27] MEDS: SODIUM CHLOR 0.9% 1000 ML INJ 1,000 ML IV SCH ×2 (00:48→12:53)
[2017-01-27] MEDS: LORazepam 2 MG/ML VIAL IV PUSH PRN ×3 (01:03→17:02)
[2017-01-27] MEDS: MORPHINE SULFATE 4 MG/ML INJ IV PUSH PRN ×3 (01:03→09:57)
[2017-01-27] MEDS: ASPIRIN EC 81 MG TABEC PO SCH (08:34)
[2017-01-27] MEDS: cloNIDine HCL 0.1 MG TAB PO SCH ×3 (08:36→17:05)
[2017-01-27] MEDS: SODIUM CHLORIDE 0.9% FLUSH 10 ML FLUSH SCH (08:36)
[2017-01-27] MEDS: FAMOTIDINE 20 MG/2 ML VIAL IV PUSH SCH (08:36)
[2017-01-27] MEDS: GABAPENTIN 300 MG CAP PO SCH ×3 (08:36→17:05)
[2017-01-27] MEDS: DOCUSATE SODIUM 50 MG/SENNA 8.6 MG TAB PO SCH (08:36)
[2017-01-27] MEDS: CLOPIDOGREL 75 MG TAB PO SCH (08:37)
[2017-01-27] MEDS: hydrALAZINE HCL 20 MG/ML VIAL IV PUSH PRN (09:18)
[2017-01-27] MEDS ORDERED: ASPI-99 PO (15:03)
[2017-01-27] MEDS ORDERED: LOMO2.5T PO (15:03)
[2017-01-27] MEDS ORDERED: MS C15TA2 PO (15:03)
[2017-01-27] MEDS ORDERED: PLAV75TA29 PO (15:03)
[2017-01-27] MEDS ORDERED: HYDR-3288 PO (15:03)
[2017-01-27] MEDS ORDERED: GABA300C5 PO (15:03)
[2017-01-27] MEDS ORDERED: CLON0.1T PO (15:03)
[2017-01-27] MEDS ORDERED: LORA1TAB12 PO (15:03)
--- NOTE | 2017-01-27 15:04 | HHI.DCPOC ---
Discharge Care Plan Diagnosis: (1) HTN (hypertension) (2) Acute ischemic left MCA stroke (3) Chronic pain Goals to Promote Your Health * To prevent worsening of your condition and complications * To maintain your health at the optimal level Directions to Meet Your Goals Take your medications as prescribed Follow your dietary instruction Follow activity as directed Keep your appointments as scheduled Take your immunizations and boosters as scheduled If your symptoms worsen call your PCP, if no PCP go to Urgent Care Center or Emergency Room Smoking is Dangerous to Your Health. Avoid second hand smoke Call the 24-hour hour crisis hotline for domestic abuse at Kirt Rosas MD Jan 27, 2017 15:04
--- NOTE | 2017-01-27 15:05 | HHI.FF ---
Face to Face Verification Diagnosis: (1) Acute ischemic left MCA stroke (2) HTN (hypertension) (3) Chronic pain Physical Therapy Order: Evaluate and Treat Home Health Nursing Order: Nursing assessment with vital signs I have seen patient Mali Mcfarlane on 01/27/17. My clinical findings support the need for the requested home health care services because: High risk of falls I certify that my clinical findings support that this patient is homebound because: Unsteady gait/balance Kirt Rosas MD Jan 27, 2017 15:05
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
== END 2017-01-27 17:20 | disposition home health service (06) | DRG 62 ==
LOC: NEPC 17:53 → NEDA 19:38 → EDBD 19:38 → HIME 21:45
PROVIDERS: ADMIT Family Medicine; ATTEND Family Medicine
DX: I63.512 Cerebral infarction due to unspecified occlusion or stenosis of left middle cerebral artery (principal); G81.91 Hemiplegia, unspecified affecting right dominant side; R47.01 Aphasia; R29.810 Facial weakness; Z79.82 Long term (current) use of aspirin; G89.4 Chronic pain syndrome; Z85.89 Personal history of malignant neoplasm of other organs and systems; I10 Essential (primary) hypertension; E78.5 Hyperlipidemia, unspecified; F41.9 Anxiety disorder, unspecified; M54.9 Dorsalgia, unspecified; I65.22 Occlusion and stenosis of left carotid artery; R29.701 NIHSS score 1; R47.81 Slurred speech
CPT/HCPCS: 70450; 70496; 70498; 70544; 70551; 71010; 80053; 80061; 80307; 81001; 82435; 82550; 82565; 82607; 82947; 83036; 83735; 84100; 84132; 84295; 84443; 84484; 84520; 85025; 85384; 85610; 85652; 85730; 86140; 86850; 86900; 86901; 87641; 93005; 93306; 95819; 99285; J0360; J2060; J2270; J2997; J3475; J7030; Q9967